=== PATIENT | male | born 1980 | race Asian ===

== ENCOUNTER → 2018-08-06 | Outpatient (CLI) | payer BC ==
--- NOTE | 2018-08-06 13:41 | Diagnostic Imaging Report ---
INDICATION: Dyspnea, cough. TECHNIQUE: Two view chest 1:10 PM CORRELATION STUDY: None FINDINGS: The heart size, mediastinal configuration and pulmonary vasculature are within normal limits. The lungs are mildly hyperinflated but overall appearing clear with no consolidating infiltrate. There is no significant pleural effusion or pneumothorax. Visualized osseous structures are unremarkable. IMPRESSION: 1. No radiographic evidence for acute abnormality of the chest. Dictated by: Dictated on workstation # [id number]
== END ==
LOC: RAD 12:35
PROVIDERS: ATTEND Family Medicine
DX: R06.00 Dyspnea, unspecified (principal); R05 Cough
CPT/HCPCS: 71046

== ENCOUNTER → 2018-08-06 | Outpatient (CLI) | payer BC | LOC: RT 12:31 | PROVIDERS: ATTEND Family Medicine | DX: R06.00 Dyspnea, unspecified (principal) ==